=== PATIENT | male | born 1985 | race Caucasian/White ===

== ENCOUNTER 2016-10-15 21:23 | Emergency (ER) | payer MEDICARE, OTHER ==
[~2016-10-15] VITALS: Ht 152.4 cm; Wt 88.2 kg
[~2016-10-15 21:23] MED LIST: ALBUAER19 INH; ALLO100T PO; CYAN100020 PO; DIPH25CA65 PO; FLUT0.0529 NAE; LEVO175T PO; SYMIN8045 INH
[2016-10-15 21:34] VITALS: Ht 152.4 cm; Wt 88.2 kg
--- NOTE | 2016-10-15 22:38 | DIAGNOSTIC IMAGING REPORT ---
HEAD CT NONCONTRAST CT DOSE: HISTORY: Fall. eval for bleed TECHNIQUE: Multiaxial CT images of the head were performed without the use of intravenous contrast. Automated exposure control was utilized for this study. Comparison: None. Findings: The paranasal sinuses and mastoid air cells are clear. The calvarium and skull base are intact. The ventricles and sulci are within normal limits. There is no mass, hematoma, midline shift, or acute infarct. Impression: No acute intracranial abnormality. Electronically signed by: Amado Taylor M.D. 10/15/2016 10:37 PM Dictated Date/Time: 10/15/2016 10:33 PM
--- NOTE | 2016-10-15 22:43 | DIAGNOSTIC IMAGING REPORT ---
CERVICAL SPINE CT CT DOSE: 1170.43 mGy.cm HISTORY: eval for fx TECHNIQUE: Multiaxial CT images of the cervical spine were performed and reformatted in the sagittal and coronal plane without the use of contrast. COMPARISON: None. FINDINGS: No fractures. No subluxation. Prevertebral soft tissues and the C1-C2 interval are intact. No pneumothorax. Moderate to space narrowing at C5-C6 with a left lateral osteophyte. IMPRESSION: No fractures within the cervical spine. Electronically signed by: Amado Taylor M.D. 10/15/2016 10:41 PM Dictated Date/Time: 10/15/2016 10:37 PM
--- NOTE | 2016-10-15 22:58 | DIAGNOSTIC IMAGING REPORT ---
LUMBAR SPINE 5 VIEWS HISTORY: Fall. Low back pain. COMPARISON: None. FINDINGS: There is no fracture. No subluxation. Disc spaces are preserved. IMPRESSION: No fracture or subluxation within the lumbar spine. Electronically signed by: Amado Taylor M.D. 10/15/2016 10:57 PM Dictated Date/Time: 10/15/2016 10:56 PM
--- NOTE | 2016-10-15 23:01 | DIAGNOSTIC IMAGING REPORT ---
LEFT FOOT MIN 3 VIEWS ROUTINE, LEFT ANKLE MIN 3 VIEWS ROUTINE CLINICAL HISTORY: Left ankle and foot pain. COMPARISON STUDY: Left foot 10/20/2014. FINDINGS: Stable widening at the first intertarsal space. This is due to the metatarsus primus varus deformity. Soft tissue and bony bunion is again noted. Mild osteoarthritis at the first MTP joint, unchanged. Tiny cystic change/erosion within the medial aspect of the first metatarsal head. The Lisfranc joint is intact. Mild soft tissue swelling at the lateral malleolus. No fracture or dislocation identified. IMPRESSION: No fracture or dislocation within the left ankle or left foot. Electronically signed by: Amado Taylor M.D. 10/15/2016 11:00 PM Dictated Date/Time: 10/15/2016 10:57 PM
--- NOTE | 2016-10-15 23:28 | EMERGENCY ROOM VISIT NOTE ---
History Report prepared by Dary: Melody Dunne Under the Supervision of: Dr. Ru Aleman M.D. First contact with patient: 21:52 Chief Complaint: FALL Stated Complaint: FALL, KNEE & NECK PAIN History of Present Illness The patient is a 31 year old male who presents to the Emergency Room with complaints of an episode of a fall occurring [employer]. The patient is in the area [place] the [employer] [place] this weekend. He was walking with a group back from [facility] on [facility] when he tripped and fell to the ground. He did not lose consciousness. The patient is complaining of left ankle pain, neck pain, headache, and low back pain. He denies abdominal pain and chest pain. The patient rates his pain as a 5/10. Source of History: patient History Limited By: other (developmental delay) Onset: [employer] Position: other (global) Symptom Intensity: 5/10 Timing: other (episode) Associated Symptoms: + headache, + neck pain, + back pain, No chest pain, No abdominal pain Note: Pt notes left ankle pain. Review of Systems See HPI for pertinent positives & negatives. A total of 10 systems reviewed and were otherwise negative. Past Medical & Surgical Medical Problems: (1) Asthma (2) Down's syndrome Family History No pertinent history stated. Social History Smoking Status: Never Smoker Housing Status: lives with family Occupation Status: disabled Current/Historical Medications Scheduled Allopurinol (Zyloprim), 100 MG PO DAILY Budesonide/Formoterol Fumarate (Symbicort 80-4.5 Mcg/Act), 2 PUFFS INH BID Cyanocobalamin (Vitamin B12), 1 TAB PO DAILY Diphenhydramine Hcl (Benadryl Allergy), 25 MG PO BID Fluticasone Propionate (Nasal) (Flonase), 2 SPRAY TALHA HS Levothyroxine Sodium (Synthroid), 150 MCG PO DAILY Scheduled PRN Albuterol Inhaler (Ventolin Inhaler), 1-2 PUFFS INH Q4 PRN for Wheezing Allergies Coded Allergies: No Known Allergies (Unverified , 10/15/16) Physical Exam Vital Signs Date Time Temp Pulse Resp B/P (MAP) Pulse Ox O2 Delivery O2 Flow Rate FiO2 10/15/16 21:42 96 10/15/16 21:34 37.1 93 18 136/85 96 Room Air Physical Exam Constitutional: Vital signs reviewed. Eyes: Pupils are equal round reactive to light. Conjunctiva are noninjected. ENT: Pharynx is clear without erythema or exudate. Mucous membranes are moist. Neck is in a rigid cervical collar. Respiratory: Clear to auscultation bilaterally. Breath sounds are equal bilaterally. Cardiovascular: Regular rate and rhythm. No rubs or gallops. GI: Soft, nondistended and nontender. Bowel sounds are present. Back: Midline tenderness to the cervical spine and the lower lumbar spine without step-off or deformity, no tenderness to the thoracic spine. Musculoskeletal: No peripheral edema. Tenderness to the left lateral malleolus and mid foot without deformity, normal distal pulses, no tenderness proximally. Integumentary: No cyanosis. Neurological: The patient is awake and alert. No focal deficits. Psychiatric: Normal affect. Medical Decision & Procedures ER Provider Diagnostic Interpretation: Radiology results as stated below per my review and the radiologist's interpretation: LUMBAR SPINE 5 VIEWS HISTORY: Fall. Low back pain. COMPARISON: None. FINDINGS: There is no fracture. No subluxation. Disc spaces are preserved. IMPRESSION: No fracture or subluxation within the lumbar spine. Electronically signed by: Amado Taylor M.D. 10/15/2016 10:57 PM Dictated Date/Time: 10/15/2016 10:[address]AST CT DOSE: HISTORY: Fall. eval for bleed TECHNIQUE: Multiaxial CT images of the head were performed without the use of intravenous contrast. Automated exposure control was utilized for this study. Comparison: None. Findings: The paranasal sinuses and mastoid air cells are clear. The calvarium and skull base are intact. The ventricles and sulci are within normal limits. There is no mass, hematoma, midline shift, or acute infarct. Impression: No acute intracranial abnormality. Electronically signed by: Amado Taylor M.D. 10/15/2016 10:37 PM Dictated Date/Time: 10/15/2016 10:33 PM LEFT FOOT MIN 3 VIEWS ROUTINE, LEFT ANKLE MIN 3 VIEWS ROUTINE CLINICAL HISTORY: Left ankle and foot pain. COMPARISON STUDY: Left foot 10/20/2014. FINDINGS: Stable widening at the first intertarsal space. This is due to the metatarsus primus varus deformity. Soft tissue and bony bunion is again noted. Mild osteoarthritis at the first MTP joint, unchanged. Tiny cystic change/erosion within the medial aspect of the first metatarsal head. The Lisfranc joint is intact. Mild soft tissue swelling at the lateral malleolus. No fracture or dislocation identified. IMPRESSION: No fracture or dislocation within the left ankle or left foot. Electronically signed by: Amado Taylor M.D. 10/15/2016 11:00 PM Dictated Date/Time: 10/15/2016 10:[address] DOSE: 1170.43 mGy.cm HISTORY: eval for fx TECHNIQUE: Multiaxial CT images of the cervical spine were performed and reformatted in the sagittal and coronal plane without the use of contrast. COMPARISON: None. FINDINGS: No fractures. No subluxation. Prevertebral soft tissues and the C1-C2 interval are intact. No pneumothorax. Moderate to space narrowing at C5-C6 with a left lateral osteophyte. IMPRESSION: No fractures within the cervical spine. Electronically signed by: Amado Taylor M.D. 10/15/2016 10:41 PM Dictated Date/Time: 10/15/2016 10:37 PM LEFT FOOT MIN 3 VIEWS ROUTINE, LEFT ANKLE MIN 3 VIEWS ROUTINE CLINICAL HISTORY: Left ankle and foot pain. COMPARISON STUDY: Left foot 10/20/2014. FINDINGS: Stable widening at the first intertarsal space. This is due to the metatarsus primus varus deformity. Soft tissue and bony bunion is again noted. Mild osteoarthritis at the first MTP joint, unchanged. Tiny cystic change/erosion within the medial aspect of the first metatarsal head. The Lisfranc joint is intact. Mild soft tissue swelling at the lateral malleolus. No fracture or dislocation identified. IMPRESSION: No fracture or dislocation within the left ankle or left foot. Electronically signed by: Amado Taylor M.D. 10/15/2016 11:00 PM Dictated Date/Time: 10/15/2016 10:57 PM ED Course 2154: The patient was evaluated in room B7. A complete history and physical exam was performed. 2244: I went to check on the patient, but he was not in the room. 2259: I removed the patient's cervical collar. He is able to move his head freely and without pain. 2312: I reassessed the patient at this time. He is feeling better and resting comfortably. I discussed the results and treatment plan with the patient and the staff member at the bedside. I answered all pertaining questions that they had. They expressed understanding and verbalized agreement. The patient will be discharged home. He is not going to participate in the games. Medical Decision This is a 31-year-old male who presents with injuries after a fall. Differential diagnosis includes contusion, concussion, intracranial hemorrhage, cervical fracture, strain, ankle fracture, ankle sprain. I did perform a limited focused review of portions of the patient's old chart on the electronic medical record. The patient has had no recent pertinent visits to this hospital. Medication Reconciliation: I attest that I have personally reviewed the patient' s current medication list. Blood Pressure Screening: Patient was found to have an elevated blood pressure and was referred to their primary doctor for recheck and further treatment. I did evaluate the patient as noted above. I did obtain history from the patient as well as a staff member from the [employer]. I did order and personally review the patient's x-rays as described above. He has no fractures or dislocation. I did order a CT of the head and cervical spine. I did review the images myself as well as the radiology report as described above. There is no evidence of intracranial hemorrhage or cervical fracture. I did discuss the test results with the patient and the staff member. I removed the cervical collar and he was able to move his neck without pain or difficulty. He was placed in an ankle splint and given crutches. He was discharged back to the dormitory and will likely go home as he will not be able to participate in the [employer]. They were given head injury precautions and discharged home. Impression Primary Impression: Acute head injury Additional Impressions: Neck pain Back pain Left ankle sprain Scribe Attestation The scribe's documentation has been prepared under my direct and personally reviewed by me in its entirety. I confirm that the note above accurately reflects all work, treatment, procedures, and medical decision making performed by me. Departure Information Dispostion Home / Self-Care Referrals Bakari Bustos D.O. (PCP) Forms HOME CARE DOCUMENTATION FORM, IMPORTANT VISIT INFORMATION Patient Instructions Ankle Sprain, ED Head Injury Closed, My [facility] Additional Instructions You have been examined and treated today on an emergency basis only. This is not a substitute for, or an effort to provide, complete comprehensive medical care. It is impossible to recognize and treat all injuries or illnesses in a single emergency department visit. It is therefore important that you follow up closely with your physician. Call as soon as possible for an appointment. Return for worsening symptoms or if you develop fever, vomiting, or any other concerning symptoms. Problem Qualifiers Primary Impression: Acute head injury Encounter type: initial encounter Qualified Codes: S09.90XA - Unspecified injury of head, initial encounter Additional Impressions: Back pain Back pain location: low back pain Chronicity: acute Back pain laterality: midline Sciatica presence: without sciatica Qualified Codes: M54.5 - Low back pain Left ankle sprain Encounter type: initial encounter Involved ligament of ankle: unspecified ligament Qualified Codes: S93.402A - Sprain of unspecified ligament of left ankle, initial encounter
[2016-10-16 00:17] VITALS: BP 136/85; PULSE 96; TEMP 37.1; O2SAT 96
== END 2016-10-16 00:18 | disposition home or self-care (01) ==
LOC: EDBD 21:23 → C.EDB 21:25
DX: S93.402A Sprain of unspecified ligament of left ankle, initial encounter (principal); S09.90XA Unspecified injury of head, initial encounter; M54.2 Cervicalgia; M54.5 Low back pain; W18.09XA Striking against other object with subsequent fall, initial encounter; Y92.89 Other specified places as the place of occurrence of the external cause; J45.909 Unspecified asthma, uncomplicated; Q90.9 Down syndrome, unspecified; Z79.899 Other long term (current) drug therapy